=== PATIENT | male | born 2000 | race Caucasian/White ===

== ENCOUNTER 2021-06-13 11:52 | Inpatient (IN) | payer OTHER ==
[~2021-06-13] VITALS: Ht 177.8 cm; Wt 97.0 kg
[2021-06-13 13:30] LABS: HEMATOCRIT 49.9 % (42.0-52.0); HEMOGLOBIN 17.4 g/dl (13.5-17.5); MEAN CORPUSCULAR HGB CONC 34.9 g/dl (32.0-36.5); MEAN CORPUSCULAR VOLUME 83.3 fl (80.0-96.0); PLATELET COUNT, AUTOMATED 326 10^3/uL (150-450); RED BLOOD COUNT 5.99 10^6/uL (4.30-6.10); WHITE BLOOD COUNT 8.6 10^3/uL (4.0-10.0)
[2021-06-13 14:11] LABS: AMPHETAMINES LEVEL URINE NEGATIVE (NEGATIVE); BARBITURATES URINE NEGATIVE (NEGATIVE); BENZODIAZEPINES URINE NEGATIVE (NEGATIVE); CANNABINOIDS URINE NEGATIVE (NEGATIVE); COCAINE METABOLITE URINE NEGATIVE (NEGATIVE); METHADONE URINE NEGATIVE (NEGATIVE); OPIATES URINE NEGATIVE (NEGATIVE); PHENCYCLIDINE URINE NEGATIVE (NEGATIVE)
[2021-06-13 14:23] LABS: HCG, SERUM QUALITATIVE NEGATIVE
[2021-06-13 14:25] LABS: ACETAMINOPHEN LEVEL < 2.0 UG/ML (10.0-30.0); ALBUMIN 4.4 GM/DL (3.2-5.2); ALT/SGPT 37 U/L (12-78); BILIRUBIN,DIRECT 0.2 MG/DL (0.0-0.2); BILIRUBIN,TOTAL 0.6 MG/DL (0.2-1.0); BLOOD UREA NITROGEN 12 MG/DL (7-18); CALCIUM LEVEL 9.9 MG/DL (8.5-10.1); CARBON DIOXIDE LEVEL 28 MEQ/L (21-32); CHLORIDE LEVEL 105 MEQ/L (98-107); CREATININE FOR GFR 1.01 MG/DL (0.70-1.30); ETHYL ALCOHOL (ETHANOL) < 0.003 % (0.000-0.010); GLOMERULAR FILTRATION RATE > 60.0 (>60); GLUCOSE, FASTING 89 MG/DL (70-100); POTASSIUM SERUM 4.3 MEQ/L (3.5-5.1); SALICYLATE LEVEL < 1.7 MG/DL (5.0-30.0); SODIUM LEVEL 138 MEQ/L (136-145); TOTAL PROTEIN 7.7 GM/DL (6.4-8.2)
[2021-06-13] MEDS ORDERED: HOME MED LIST COMPLETE! XX SCH (18:00)
[2021-06-13 22:26] LABS: RSV AMPLIFICATION NEGATIVE (NEGATIVE)
[2021-06-13] MEDS ORDERED: MAALOX 30 ML SUSP *UDC PO PRN (22:35)
[2021-06-13] MEDS ORDERED: MOM 30ML SUSPENSION UDC PO PRN (22:35)
[2021-06-13] MEDS ORDERED: OLANZapine ORAL DISINTEGRATING TAB 5MG PO PRN (22:35)
[2021-06-13] MEDS ORDERED: ACETAMINOPHEN TAB 650MG DOSE (2X325MG) PO PRN (22:35)
[2021-06-13] MEDS: traZODone 50 MG TAB PO PRN (23:47)
[2021-06-13 23:57] VITALS: BP 138/92
[2021-06-14 06:00] VITALS: BP 136/70
[2021-06-14] MEDS ORDERED: NICOTINE 21MG/24HR 1 EA TRANSDERMAL TD ONE (10:00)
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
[2021-06-14] MEDS ORDERED: TRAZ-252 PO (18:08)
--- NOTE | 2021-06-14 18:55 | HPEPDOC ---
[facility] Medical History & Physical Date of Admission Jun 13, 2021 Date of Service: Jun 14, 2021 History and Physical CHIEF COMPLAINT: Medical screening HISTORY OF PRESENT ILLNESS: Mr. Chirinos is a 21-year-old male who was in the inpatient mental health unit for depression and suicidal ideation. Patient's BF recently in November. He has guilt and has increasing thoughts of SI. Patient was given trazodone last night and slept well. When I saw patient this evening, he was feeling better. He thinks his good sleep last night has really helped. He feels physically well. Denies any fever, lightheadedness or dizziness, chest pain, dyspnea, abdominal pain, diarrhea, or dysuria. He has no other complaints PAST MEDICAL HISTORY: Patient denies any past medical history PAST SURGICAL HISTORY: Patient denies any past surgical history SOCIAL HISTORY: Tobacco use: Former smoker ETOH: Denies alcohol use Illicit drug use: Denies illicit drug use FAMILY HISTORY: Father: Does not know father's medical history Mother: Notes that his mom had a neck surgery. Said that there was "water" there. ALLERGIES: Please see below. REVIEW OF SYSTEMS: CONSTITUTIONAL: Denies any fever or chills. Denies lightheadedness or dizziness. ENT: Denies sore throat. RESPIRATORY: Denies shortness of breath. Denies cough. CARDIOVASCULAR: Denies chest pain. GASTROINTESTINAL: Denies abdominal pain. Denies diarrhea. GENITOURINARY: Denies dysuria. CUTANEOUS: Denies rashes. HEMATOLOGICAL: Denies bruises NEUROLOGICAL: Denies neuropathy. Denies paresthesias. PSYCHOLOGICAL: Denies anxiety. Denies depression. HOME MEDICATIONS: Please see below. PHYSICAL EXAMINATION: VITAL SIGNS: Temperature 97.4, pulse 81, respiratory rate 20, blood pressure 136/70, pulse oximetry 99% on room air. GENERAL: Comfortable, in no apparent distress. HEENT: Head normocephalic/atraumatic, EOMI, sclera clear. NECK: Supple, no JVD. RESPIRATORY: Lungs clear to auscultation bilaterally, no rales, wheeze or rhonchi. CARDIOVASCULAR: Regular rate and rhythm. ABDOMEN: Soft, nontender, no guarding or rebound tenderness. Normal bowel sounds. MUSCLE SKELETAL: Muscle strength 5/5 in all extremities. NEUROLOGICAL: CN 312 grossly intact, no focal deficits noted. PSYCHOLOGICAL: Normal mood and affect LABORATORY DATA: See below. IMAGING: None MICROBIOLOGY: Please see below. ASSESSMENT and PLAN: 1. Suicidal ideation Being managed in the inpatient mental health unit 2. Depression/grief Being managed in the inpatient mental health unit Thank you for consulting us. We will sign off at this time. If there is any further questions or concerns, please do not hesitate to reconsult us. Vital Signs Vital Signs Date Time Temp Pulse Resp B/P (MAP) Pulse Ox O2 Delivery O2 Flow Rate FiO2 06/14/21 06:00 97.4 81 20 136/70 (92) 99 06/13/21 23:57 Room Air Laboratory Data Labs 24H Laboratory Tests 2 06/13/21 21:24: Coronavirus (COVID-19)(PCR) NEGATIVE, Influenza Type A (RT-PCR) NEGATIVE, Influenza Type B (RT-PCR) NEGATIVE, Respiratory Syncytial Virus (PCR) NEGATIVE Home Medications Scheduled PRN Trazodone HCl (Trazodone HCl) 50 Mg Tablet, 50 MG PO QHSP PRN for INSOMNIA Allergies Coded Allergies: No Known Allergies (Verified Allergy, Unknown, 06/13/21) A-FIB/CHADSVASC A-FIB History Current/History of A-Fib/PAF?: No MALIHA TEMPLETON DO Jun 14, 2021 18:55
[2021-06-14 19:30] VITALS: BP 130/90
[2021-06-14] MEDS: traZODone 50 MG TAB PO PRN (20:38)
[2021-06-15 06:24] VITALS: BP 131/68
[2021-06-15] MEDS ORDERED: NICOTINE 21MG/24HR 1 EA TRANSDERMAL TD SCH (09:00)
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
== END 2021-06-15 13:10 | disposition home or self-care (01) | DRG 881 ==
LOC: M ED 11:52 → M PSY 23:15
PROVIDERS: ADMIT Student in an Organized Health Care Education/Training Program; ATTEND Psychiatry & Neurology Psychiatry
DX: F32.9 Major depressive disorder, single episode, unspecified (principal); R45.851 Suicidal ideations; G47.00 Insomnia, unspecified; Z20.822 Contact with and (suspected) exposure to COVID-19